=== PATIENT | female | born 1950 | race Caucasian/White ===

== ENCOUNTER 2018-12-07 12:26 | Emergency (ER) | payer BC ==
[~2018-12-07] VITALS: Ht 162.6 cm; Wt 59.0 kg
[2018-12-07 12:33] VITALS: BP 126/77; PULSE 78; RESP 16; Ht 162.6 cm; Wt 59.0 kg
[2018-12-07] MEDS ORDERED: ACET500C5 PO (14:08)
--- NOTE | 2018-12-07 14:15 | ERD ---
ER Documentation Chief Complaint Chief Complaint left arm pain s/p fall today while using crutches HPI Patient is a 68-year-old female, history of right ankle fracture, presents the ER for concerns of left arm pain after trip and fall injury while using crutches earlier today. Patient states she was at her operating systems specialist (Dr. Russell) office due to her right ankle fracture when she tripped while using the crutches. Patient landed on her left shoulder/elbow. Patient was placed in the long-arm splint and advised to come to [facility] ER for x-ray imaging of the shoulder and elbow. Patient denies any previous fractures or dislocations to the affected area. ROS All systems reviewed and are negative except as per history of present illness. Medications Home Meds Active Scripts Acetaminophen* (Tylophen*) 500 Mg Capsule, 1 CAP PO Q6H PRN for PAIN AND OR ELEVATED TEMP, #20 CAP Prov:ERICA COELHO PA-C 12/07/18 Allergies Allergies: Coded Allergies: No Known Allergy (Unverified , 12/07/18) PMhx/Soc Medical and Surgical Hx: pt denies Medical Hx, pt denies Surgical Hx Hx Alcohol Use: No Hx Substance Use: No Hx Tobacco Use: No Smoking Status: Never smoker FmHx Family History: No diabetes Physical Exam Vitals Vital Signs Date Temp Pulse Resp B/P (MAP) Pulse Ox O2 O2 Flow FiO2 Time Delivery Rate 12/07/18 98.1 78 16 126/77 97 12:33 (93) Physical Exam GENERAL: Well-developed, well-nourished female. Appears in no acute distress. HEAD: Normocephalic, atraumatic. EYES: Pupils are equally reactive bilaterally. EOMs grossly intact. No conjunctival erythema. ENT: Moist mucous membranes. No uvula deviation. No kissing tonsils. NECK: Supple. No meningismus. Normal range of motion of the neck. LUNG: Clear to auscultation bilaterally. No rhonchi, wheezing, rales or coarse breath sounds. HEART: Regular rate and rhythm. No murmurs, rubs or gallops. EXTREMITIES: Equal pulses bilaterally. No peripheral clubbing, cyanosis or edema. No unilateral leg swelling. NEUROLOGIC: Alert and oriented. Moving all four extremities without any difficulty. Normal speech. Steady gait. SKIN: Normal color. Warm and dry. No rashes or lesions. LUE: Splint removed by patient. Patient threw splint onto the floor. No obvious deformity, swelling or ecchymosis. Tender to palpation over the anterior shoulder and elbow.. Skin intact. Decreased range of motion of elbow secondary to pain. Sensation intact to light touch. Neurovascularly intact. (Able to give thumbs up, make an ok sign, cross digits 2 and 3, thumb to pinky opposition. 2+ RP.) No snuffbox tenderness. RLE: In short leg splint. Normal 2+ pulse. Procedures/MDM ED COURSE: The patient was stable throughout ED course. I kept the patient and/or family informed of laboratory and diagnostic imaging results throughout the ED course. DIAGNOSTIC IMAGING: Read by radiologist. DIAGNOSTIC IMAGING REPORT Patient: TONI WANG : 1950 Age: 68 Sex: F MR #: [id number] DOS: 12/07/18 1253 Ordering MD: ERICA COELHO PA-C Location: [facility] Room/Bed: PROCEDURE: XR Elbow. CLINICAL INDICATION: Pain TECHNIQUE: AP, lateral and oblique views of the left elbow performed. COMPARISON: None. FINDINGS: There is normal mineralization and alignment. No acute fracture or osseous lesion is identified. There is no significant joint space narrowing. The soft tissues are unremarkable. RPTAT: AA IMPRESSION: Unremarkable examination. .Eugenio Fitzpatrick MD, Date Time Electronically viewed and signed by .Eugenio Fitzpatrick MD, MD on 12/07/2018 14:03 .S/ CC: ERICA COELHO PA-C [id number] Patient: TONI WANG : 1950 Age: 68 Sex: F MR #: [id number] DOS: 12/07/18 1253 Ordering MD: ERICA COELHO PA-C Location: [facility] Room/Bed: PROCEDURE: XR left shoulder. CLINICAL INDICATION: Pain TECHNIQUE: AP, Internal and external rotation views of the left shoulder were performed. COMPARISON: None. FINDINGS: There are mild degenerative changes involving the acromioclavicular joint with mild joint space narrowing. There is normal osseous mineralization and alignment. No fracture or osseous lesion is identified. The soft tissues are unremarkable. RPTAT: AA IMPRESSION: Mild degenerative changes of the acromioclavicular joint. .Eugenio Fitzpatrick MD, MD Date Time Electronically viewed and signed by .Eugenio Fitzpatrick MD, MD on 12/07/2018 14:02 .S/ CC: ERICA COELHO PA-C [id number] PROCEDURES: SPLINT APPLICATION: The patient was verbally consented at bedside prior to splint application. Patient was explained the risks, benefits and alternatives to this procedure. The patient was neurovascularly intact prior to and status post application of the splint. The patient tolerated the procedure well with no complications. Splint type: Sling Extremity: left arm Indication: muscle strain MEDICAL DECISION MAKING: Patient is patient is a 68-year-old female, history of right ankle fracture, presents to the ER for concerns of left arm pain after trip and fall injury while using her crutches earlier today. Vital signs were reviewed. Patient is afebrile. Patient was not hypoxic. Patient was hemodynamically stable. She was placed in a long-arm splint prior to arrival to the ER by her operating systems specialist. Patient remove the splint by herself. Upon my arrival to the room splint was noted to be on the floor. X-ray imaging was completed per operating systems specialist request of the left shoulder and elbow. See formal reports above. No evidence of fracture or dislocation. Patient already has crutches as well as a prescription for a walker to assist the patient with ambulation as she does have an ankle fracture. Patient advised to continue to use crutches/walker as advised by operating systems specialist. Low suspicion for compartment syndrome. Patient already has prescriptions for pain medication thus none were given at today's visit. DISCHARGE: At this time, patient is stable for discharge and outpatient management. I have instructed the patient to follow-up with his/her primary care physician in 1-2 days. I have discussed with the patient the possibility of needing to see a specialist for further workup and imaging studies if symptoms persist. I have instructed the patient to promptly return to the ER for any new or worsening symptoms including increased pain, fever, nausea, vomiting, weakness or LOC. The patient and/or family expressed understanding of and agreement with this plan. All questions were answered. Home care instructions were provided. Disclaimer: Inadvertent spelling and grammatical errors are likely due to EHR/dictation software use and do not reflect on the overall quality of patient care. Also, please note that the electronic time recorded on this note does not necessarily reflect the actual time of the patient encounter. Departure Diagnosis: Primary Impression: Injury of upper extremity Encounter type: initial encounter Laterality: left Qualified Codes: S49.92XA - Unspecified injury of left shoulder and upper arm, initial encounter Additional Impression: Closed right ankle fracture Encounter type: initial encounter Qualified Codes: S82.891A - Other fractu re of right lower leg, initial encounter for closed fracture Condition: Stable Patient Instructions: Muscle Strain, Extremity Referrals: COMM[facility]ITY CLIN[facility] YOU HAVE RECEIVED A MEDICAL SCREENING EXAM AND THE RESULTS INDICATE THAT YOU DO NOT HAVE A CONDITION THAT REQUIRES URGENT TREATMENT IN THE EMERGENCY DEPARTMENT. FURTHER EVALUATION AND TREATMENT OF YOUR CONDITION CAN WAIT UNTIL YOU ARE SEEN IN YOUR DOCTORS OFFICE WITHIN THE NEXT 1-2 DAYS. IT IS YOUR RESPONSIBILITY TO MAKE AN APPOINTMENT FOR FOLOW-UP CARE. IF YOU HAVE A PRIMARY DOCTOR --you should call your primary doctor and schedule an appointment IF YOU DO NOT HAVE A PRIMARY DOCTOR YOU CAN CALL OUR PHYSICIAN REFERRAL HOTLINE AT IF YOU CAN NOT AFFORD TO SEE A PHYSICIAN YOU CAN CHOSE FROM THE FOLLOWING [facility] [address] [facility] [address] [facility] [address] [facility] [address] [facility] [address] [facility] [address] [facility]. [facility] YOU HAVE RECEIVED A MEDICAL SCREENING EXAM AND THE RESULTS INDICATE THAT YOU DO NOT HAVE A CONDITION THAT REQUIRES URGENT TREATMENT IN THE EMERGENCY DEPARTMENT. FURTHER EVALUATION AND TREATMENT OF YOUR CONDITION CAN WAIT UNTIL YOU ARE SEEN IN YOUR DOCTORS OFFICE WITHIN THE NEXT 1-2 DAYS. IT IS YOUR RESPONSIBILITY TO MAKE AN APPOINTMENT FOR FOLOW-UP CARE. IF YOU HAVE A PRIMARY DOCTOR --you should call your primary doctor and schedule and appointment IF YOU DO NOT HAVE A PRIMARY DOCTOR YOU CAN CALL OUR PHYSICIAN REFERRAL HOTLINE AT . IF YOU CAN NOT AFFORD TO SEE A PHYSICIAN YOU CAN CHOSE FROM THE FOLLOWING [facility]: [facility] [address] [place] [address] [facility] [address] [place] [address] [facility] [address] [place] [address] Additional Instructions: Follow-up with your operating systems specialist as scheduled for further management of your ankle fracture. Call your primary care doctor TOMORROW for an appointment during the next 1-2 days.See the doctor sooner or return here if your condition worsens before your appointment time. ERICA COELHO PA-C Dec 07, 2018 14:15
== END 2018-12-07 14:21 | disposition home or self-care (01) ==
LOC: FTE 12:26
DX: S49.92XA Unspecified injury of left shoulder and upper arm, initial encounter (principal); W01.0XXA Fall on same level from slipping, tripping and stumbling without subsequent striking against object, initial encounter; Y92.9 Unspecified place or not applicable
CPT/HCPCS: 73030